=== PATIENT | female | born 1955 | race Caucasian/White ===

== ENCOUNTER 2018-09-05 08:42 | Day surgery (SDC) | payer OTHER ==
[2018-09-05] MEDS ORDERED: MIDAZOLAM 1 MG/ML 2 ML INJ ×2 (11:38→11:39)
[2018-09-05] MEDS ORDERED: FENTAnyl 50 MCG/ML VIAL (11:39)
== END 2018-09-05 15:25 | disposition home or self-care (01) ==
LOC: GIL 08:42
DX: Z12.11 Encounter for screening for malignant neoplasm of colon (principal); K64.4 Residual hemorrhoidal skin tags; K57.30 Diverticulosis of large intestine without perforation or abscess without bleeding
CPT/HCPCS: 45378

== ENCOUNTER 2018-11-07 07:55 | Day surgery (SDC) | payer OTHER ==
[~2018-11-07 07:55] MED LIST: CEFAZOLIN 2 GM/50 ML (PMX) 50 ML IVPB; SOD CHLORIDE 0.9% 1,000 ML IV
[2018-11-07] MEDS ORDERED: FENTAnyl 50 MCG/ML VIAL (09:02)
[2018-11-07] MEDS ORDERED: MIDAZOLAM 1 MG/ML 2 ML INJ (09:02)
[2018-11-07] MEDS ORDERED: PROPOFOL 0 ML (09:03)
[2018-11-07] MEDS ORDERED: LIDOCAINE 2% (SDV) 5 ML INJ (09:03)
[2018-11-07] MEDS ORDERED: CEFAZOLIN 1 GM INJ (09:03)
[2018-11-18] MEDS ORDERED: CEFAZOLIN 1 GM INJ (11:45)
[2018-11-18] MEDS ORDERED: MIDAZOLAM 1 MG/ML 2 ML INJ (11:45)
[2018-11-18] MEDS ORDERED: KETOROLAC 30 MG INJ (11:45)
[2018-11-18] MEDS ORDERED: ONDANSETRON 4 MG INJ (11:45)
[2018-11-18] MEDS ORDERED: PROPOFOL 0 ML (11:45)
[2018-11-18] MEDS ORDERED: SOD CHLORIDE 0.9% 1,000 ML IV (12:30)
== END 2018-11-18 12:25 ==
LOC: SDS 07:55
DX: D05.11 Intraductal carcinoma in situ of right breast (principal); Z53.8 Procedure and treatment not carried out for other reasons
CPT/HCPCS: J3010

== ENCOUNTER 2018-11-18 12:31 | Emergency (ER) | payer OTHER | END 2018-11-18 14:27 | disposition home or self-care (01) | LOC: E/R 12:31 | DX: R55 Syncope and collapse (principal); Z85.3 Personal history of malignant neoplasm of breast | CPT/HCPCS: 93005; 99283-25 ==

== ENCOUNTER 2018-11-20 07:38 | Day surgery (SDC) | payer OTHER ==
[2018-11-20] MEDS: SOD CHLORIDE 0.9% 1,000 ML IV (06:00)
[~2018-11-20 07:38] MED LIST changes: -SOD CHLORIDE 0.9% 1,000 ML IV
[2018-11-20 08:30] LABS: ADD MAN DIFF? NO
[2018-11-20 08:33] LABS: BASOPHILS % 0.9 % (0.0-2.0); EOSINOPHILS # 0.1 10^3/ul (0.0-0.5); EOSINOPHILS % 1.6 % (0.0-7.0); HEMATOCRIT 40.5 % (37.0-47.0); HEMOGLOBIN 13.4 g/dl (12.0-16.0); LYMPHOCYTES # 1.1 10^3/ul (0.8-2.9); LYMPHOCYTES % 26.5 % (15.0-51.0); MEAN CORPUSCULAR HEMOGLOBIN 30.8 pg (29.0-33.0); MEAN CORPUSCULAR HGB CONC 33.1 g/dl (32.0-37.0); MEAN CORPUSCULAR VOLUME 93.1 fl (82.0-101.0); MEAN PLATELET VOLUME 9.3 fl (7.4-10.4); MONOCYTE # 0.4 10^3/ul (0.3-0.9); MONOCYTES % 9.5 % (0.0-11.0); NEUTROPHIL # 2.6 10^3/ul (1.6-7.5); PLATELET COUNT 230 10^3/UL (140-415); RED BLOOD COUNT 4.35 10^6/ul (4.20-5.40); RED CELL DISTRIBUTION WIDTH 12.7 % (11.5-14.5)
[2018-11-20 08:33] LABS: WHITE BLOOD COUNT 4.3 10^3/ul (4.8-10.8)
[2018-11-20 08:40] LABS: ALANINE AMINOTRANSFERASE 18 IU/L (13-69); ALBUMIN 4.5 g/dl (3.3-4.9); ALKALINE PHOSPHATASE 123 IU/L (42-121); ANION GAP 11 (5-13); ASPARTATE AMINO TRANSFERASE 22 IU/L (15-46); BILIRUBIN,INDIRECT 0.4 mg/dl (0-1.1); BILIRUBIN,TOTAL 0.4 mg/dl (0.2-1.3); BLOOD UREA NITROGEN 19 mg/dl (7-20); CALCIUM 9.8 mg/dl (8.4-10.2); CARBON DIOXIDE 28 mmol/L (21-31); CHLORIDE 108 mmol/L (97-110); CREATININE 0.62 mg/dl (0.44-1.00); Estimated GFR > 60 mL/min (>60); GLUCOSE 109 mg/dl (70-220); POTASSIUM 4.5 mmol/L (3.5-5.1); TOTAL PROTEIN 7.5 g/dl (6.1-8.1)
[2018-11-20 08:50] LABS: INR 0.86; PROTIME 11.8 Sec (11.9-14.9); PT RATIO 0.9; SODIUM 147 mmol/L (135-144)
[2018-11-20 08:51] LABS: PARTIAL THROMBOPLASTIN TIME 27.5 Sec (23.0-35.0)
[2018-11-20] MEDS ORDERED: DESFLURANE 15 MIN (12:30)
[2018-11-20] MEDS ORDERED: PROPOFOL 20 ML (12:37)
[2018-11-20] MEDS ORDERED: MIDAZOLAM 1 MG/ML 2 ML INJ (12:37)
[2018-11-20] MEDS ORDERED: KETOROLAC 30 MG INJ (12:37)
[2018-11-20] MEDS ORDERED: ONDANSETRON 4 MG INJ (12:37)
[2018-11-20] MEDS ORDERED: HYDROmorphONE 1 MG/5 ML IV SYRINGE IV (13:30)
[2018-11-20] MEDS ORDERED: FENTAnyl 50 MCG/ML VIAL IV (13:30)
[2018-11-20] MEDS ORDERED: ONDANSETRON 4 MG INJ IV (13:30)
[2018-11-20] MEDS: LIDOCAINE 1% (MPF) 30 ML INJ (14:20)
[2018-11-20] MEDS ORDERED: OXYCODONE/ACETAMINOPHEN (5/325) TAB PO (15:00)
== END 2018-11-20 16:29 | disposition home or self-care (01) ==
LOC: SDS 07:38
DX: D05.11 Intraductal carcinoma in situ of right breast (principal)
CPT/HCPCS: 19301; 80053; 85025; 85610; 85730; 88307